=== PATIENT | male | born 1965 | race Caucasian/White ===

== ENCOUNTER 2016-08-03 10:08 | Inpatient (IN) | payer OTHER ==
[~2016-08-03] VITALS: Ht 165.1 cm; Wt 63.3 kg
[2016-08-03 11:12] LABS: HEMATOCRIT 29.6 % (38.0-50.0); MCH 26.6 PG (29.0-34.0); MCHC 32.8 G/DL (30.0-36.0); MCV 81.3 FL (86-99); MEAN PLAT.VOLUME 9.4 uM^3 (9.0-12.4); PLATELET COUNT 405 K/uL (156-360); RBC DIS.WIDTH-CV 14.7 % (11.8-14.6); RBC DIS.WIDTH-SD 41.9 % (39-53); RED BLOOD COUNT 3.64 M/uL (4.00-5.50); WHITE BLOOD COUNT 13.3 K/uL (4.1-10.2)
[2016-08-03 11:22] LABS: CHLORIDE 112 mEq/L (99-109); POTASSIUM 3.9 mEq/L (3.7-5.4); SODIUM 139 mEq/L (136-147)
[2016-08-03 11:24] LABS: GLUCOSE 86 mg/dL (70-99)
[2016-08-03 11:25] LABS: ANION GAP 11 MEQ/L (2-14)
[2016-08-03 11:26] LABS: TOTAL BILIRUBIN 0.3 mg/dL (0.0-1.0)
[2016-08-03 11:27] LABS: ALKALINE PHOSPHATASE 67 IU/L (3-129)
[2016-08-03 11:28] LABS: GFR ESTIMATE (CALCULATED) 32 mL/min/
[2016-08-03 11:29] LABS: UREA NITROGEN (BUN) 39 mg/dL (9-23)
[2016-08-03 11:29] LABS: ADD MIUA? YES; BILIRUBIN NEGATIVE; BLOOD LARGE; GLUCOSE (STRIP) NEGATIVE; KETONES NEGATIVE; LEUKOCYTES LARGE; NITRITE POSITIVE; PROTEIN (STRIP) 100; SPECIFIC GRAVITY 1.007 (1.000-1.030)
[2016-08-03 11:30] LABS: COLOR LT.RED ((YELLOW))
[2016-08-03 11:36] LABS: TROP-I INTERPRETATION NEGATIVE; TROPONIN-I 0.01 ng/mL (0.0-0.30)
[2016-08-03 12:31] LABS: RED BLOOD CELLS TNTC /HPF (0-5); WHITE BLOOD CELLS TNTC /HPF (0-5)
[2016-08-03 12:32] LABS: UCUL ADDED? YES
[2016-08-03 13:06] LABS: CREATINE KINASE 37 IU/L (1-294)
[2016-08-03 19:30] VITALS: BP 130/80
[2016-08-03 19:58] LABS: ABSOLUTE RETICULOCYTE CT. 0.02 M/uL (0.02-0.08); IMM.RETIC FRACTION 1.3 % (3-19); RETIC HGB EQUIVALENT 30.4 (28-36); RETICULOCYTE COUNT 0.7 % (0.5-1.8)
[2016-08-03 20:16] VITALS: BP 149/81
[2016-08-03 20:23] LABS: IRON 42 MCG/DL (35-150)
[2016-08-03 20:25] LABS: TROP-I INTERPRETATION NEGATIVE; TROPONIN-I 0.01 ng/mL (0.0-0.30)
[2016-08-03 21:16] VITALS: BP 133/59
[2016-08-03 22:15] VITALS: BP 148/86
[2016-08-03 22:22] LABS: FERRITIN 284 NG/ML (22-322)
[2016-08-03 22:23] VITALS: BP 130/76
[2016-08-04 03:36] LABS: UR CREATININE CONCENTRATION 32.3 MG/DL
[2016-08-04 06:22] LABS: CARBON DIOXIDE (BICARBONATE) 16.3 MEQ/L (20-31)
[2016-08-04 07:36] LABS: ANION GAP 8 MEQ/L (2-14); CHLORIDE 117 MEQ/L (99-109); GFR ESTIMATE (CALCULATED) 52 mL/min/; GLUCOSE 81 mg/dL (70-99); POTASSIUM 3.7 MEQ/L (3.7-5.4); SAMPLE HEMOLYSIS CHECK 0; SAMPLE ICTERIC CHECK 0; SAMPLE LIPEMIA CHECK 0; SODIUM 138 MEQ/L (136-147); UREA NITROGEN (BUN) 24 mg/dL (9-23)
[2016-08-04 08:00] VITALS: BP 163/98
[2016-08-04 08:12] LABS: HEMATOCRIT 24.1 % (38.0-50.0); MCH 26.5 PG (29.0-34.0); MCHC 32.4 G/DL (30.0-36.0); RBC DIS.WIDTH-CV 15.4 % (11.8-14.6); RED BLOOD COUNT 2.94 M/uL (4.00-5.50)
[2016-08-04 08:31] LABS: WHITE BLOOD COUNT 9.3 K/uL (4.1-10.2)
[2016-08-04 11:41] VITALS: BP 143/82
[2016-08-04 15:30] VITALS: BP 143/82
[2016-08-04 19:15] VITALS: BP 139/87
[2016-08-04 23:29] VITALS: BP 151/86
[2016-08-05] VITALS (7 sets, daily range): BP systolic 120–183; BP diastolic 77–91
[2016-08-05 06:35] LABS: HEMATOCRIT 24.3 % (38.0-50.0); MCH 26.7 PG (29.0-34.0); MCHC 32.5 G/DL (30.0-36.0); MCV 82.1 FL (86-99); RBC DIS.WIDTH-CV 15.2 % (11.8-14.6); RBC DIS.WIDTH-SD 45.7 % (39-53); RED BLOOD COUNT 2.96 M/uL (4.00-5.50); WHITE BLOOD COUNT 6.6 K/uL (4.1-10.2)
[2016-08-05 06:40] LABS: INTER. NORMALIZED RATIO 1.1; PROTHROMBIN TIME 11.6 (9.2-11.2)
[2016-08-05 07:13] LABS: ANION GAP 7 MEQ/L (2-14); CHLORIDE 112 MEQ/L (99-109); GFR ESTIMATE (CALCULATED) 57 mL/min/; GLUCOSE 84 mg/dL (70-99); POTASSIUM 3.7 MEQ/L (3.7-5.4); SAMPLE HEMOLYSIS CHECK 0; SAMPLE ICTERIC CHECK 0; SAMPLE LIPEMIA CHECK 0; SODIUM 139 MEQ/L (136-147); UREA NITROGEN (BUN) 18 mg/dL (9-23)
[2016-08-05 07:30] LABS: ALKALINE PHOSPHATASE 52 IU/L (3-129); TOTAL BILIRUBIN 0.2 MG/DL (0.0-1.0)
[2016-08-05 08:04] LABS: MEAN PLAT.VOLUME 9.6 uM^3 (9.0-12.4)
[2016-08-05 08:07] LABS: PLATELET COUNT 245 K/uL (156-360)
[2016-08-05 10:51] LABS: ABSOLUTE RETICULOCYTE CT. 0.03 M/uL (0.02-0.08); IMM.RETIC FRACTION 4.6 % (3-19)
[2016-08-05 12:04] LABS: RETICULOCYTE COUNT 1.2 % (0.5-1.8)
[2016-08-06] VITALS (11 sets, daily range): BP systolic 134–179; BP diastolic 79–100
[2016-08-06 06:34] LABS: MCH 26.9 PG (29.0-34.0); MCHC 33.4 G/DL (30.0-36.0); MCV 80.4 FL (86-99); MEAN PLAT.VOLUME 9.7 uM^3 (9.0-12.4); PLATELET COUNT 260 K/uL (156-360); RBC DIS.WIDTH-CV 14.7 % (11.8-14.6); RBC DIS.WIDTH-SD 43.6 % (39-53)
[2016-08-06 06:45] LABS: CHLORIDE 104 MEQ/L (99-109); GFR ESTIMATE (CALCULATED) > 59 mL/min/; GLUCOSE 98 mg/dL (70-99); RED BLOOD COUNT 3.98 M/uL (4.00-5.50); SODIUM 140 MEQ/L (136-147); UREA NITROGEN (BUN) 19 mg/dL (9-23); WHITE BLOOD COUNT 9.3 K/uL (4.1-10.2)
[2016-08-06 06:46] LABS: ALKALINE PHOSPHATASE 55 IU/L (3-129); ANION GAP 10 MEQ/L (2-14); SAMPLE HEMOLYSIS CHECK 0; SAMPLE ICTERIC CHECK 0; SAMPLE LIPEMIA CHECK 0
[2016-08-06 06:50] LABS: TOTAL BILIRUBIN 0.5 MG/DL (0.0-1.0)
[2016-08-06 06:57] LABS: ANION GAP 12 MEQ/L (2-14); CHLORIDE 105 MEQ/L (99-109); GFR ESTIMATE (CALCULATED) > 59 mL/min/; GLUCOSE 98 mg/dL (70-99); SAMPLE HEMOLYSIS CHECK 0; SAMPLE ICTERIC CHECK 0; SAMPLE LIPEMIA CHECK 0; SODIUM 142 MEQ/L (136-147); UREA NITROGEN (BUN) 18 mg/dL (9-23)
[2016-08-06 13:42] LABS: IFE GEL NO. 13-8
[2016-08-07 00:36] VITALS: BP 161/80
[2016-08-07 06:31] LABS: HEMATOCRIT 32.6 % (38.0-50.0); MCH 26.6 PG (29.0-34.0); MCHC 32.8 G/DL (30.0-36.0); MCV 81.1 FL (86-99); MEAN PLAT.VOLUME 9.3 uM^3 (9.0-12.4); PLATELET COUNT 267 K/uL (156-360); RBC DIS.WIDTH-CV 14.9 % (11.8-14.6); RBC DIS.WIDTH-SD 43.8 % (39-53); RED BLOOD COUNT 4.02 M/uL (4.00-5.50); WHITE BLOOD COUNT 9.9 K/uL (4.1-10.2)
[2016-08-07 07:01] LABS: ALKALINE PHOSPHATASE 55 IU/L (3-129); ANION GAP 10 MEQ/L (2-14); CHLORIDE 104 MEQ/L (99-109); GFR ESTIMATE (CALCULATED) > 59 mL/min/; GLUCOSE 83 mg/dL (70-99); POTASSIUM 3.2 MEQ/L (3.7-5.4); SAMPLE HEMOLYSIS CHECK 0; SAMPLE ICTERIC CHECK 0; SAMPLE LIPEMIA CHECK 0; SODIUM 141 MEQ/L (136-147); TOTAL BILIRUBIN 0.4 MG/DL (0.0-1.0); UREA NITROGEN (BUN) 17 mg/dL (9-23)
[2016-08-07 07:47] VITALS: BP 146/88
[2016-08-07 11:50] VITALS: BP 170/88
[2016-08-07 16:00] VITALS: BP 168/88
[2016-08-07] MEDS ORDERED: AMLODIPINE BESYL5 MG PO (17:54)
[2016-08-07] MEDS ORDERED: ENDOCET 5-3251 EACH PO (17:54)
[2016-08-07] MEDS ORDERED: ASPIR-LOW81 MG PO (17:54)
[2016-08-07] MEDS ORDERED: NABI650T PO (17:54)
[2016-08-07] MEDS ORDERED: K-DUR10 MEQ PO (17:54)
[2016-08-07] MEDS ORDERED: CARDIZEM CD120 MG PO (17:54)
[2016-08-07] MEDS ORDERED: Vitamin B-12 PO (17:54)
[2016-08-07] MEDS ORDERED: CIPRO500 MG PO (17:54)
[2016-08-07] MEDS ORDERED: PHENAZOPYRIDIN100 MG PO (17:54)
== END 2016-08-07 18:49 | disposition home or self-care (01) | DRG 309 ==
LOC: EME 10:08 → EDOF 13:24 → 4EAST 13:24 → EDOF 15:39 → 4EAST 19:12
PROVIDERS: Emergency Medicine; Internal Medicine; Internal Medicine Nephrology
PROC: 30233N1 Transfusion of Nonautologous Red Blood Cells into Peripheral Vein, Percutaneous Approach (ICD-10-PCS; principal; 2016-08-06)
DX: I48.0 Paroxysmal atrial fibrillation (principal); N39.0 Urinary tract infection, site not specified; N17.9 Acute kidney failure, unspecified; N13.30 Unspecified hydronephrosis; G83.9 Paralytic syndrome, unspecified; F17.210 Nicotine dependence, cigarettes, uncomplicated; B96.20 Unspecified Escherichia coli [E. coli] as the cause of diseases classified elsewhere; R00.0 Tachycardia, unspecified; G89.29 Other chronic pain; E53.8 Deficiency of other specified B group vitamins; M54.9 Dorsalgia, unspecified; N18.9 Chronic kidney disease, unspecified; J44.9 Chronic obstructive pulmonary disease, unspecified; R33.9 Retention of urine, unspecified; N31.9 Neuromuscular dysfunction of bladder, unspecified; E87.8 Other disorders of electrolyte and fluid balance, not elsewhere classified; R39.12 Poor urinary stream; K59.00 Constipation, unspecified; R10.9 Unspecified abdominal pain; D50.9 Iron deficiency anemia, unspecified; I12.9 Hypertensive chronic kidney disease with stage 1 through stage 4 chronic kidney disease, or unspecified chronic kidney disease; R06.02 Shortness of breath; R31.9 Hematuria, unspecified; Z79.891 Long term (current) use of opiate analgesic; Z88.0 Allergy status to penicillin
CPT/HCPCS: 74022; 76770; 80048; 80053; 80069; 81003; 82550 91; 82570; 82607; 82728; 82746; 82803; 83540; 84300; 84443; 84466; 84484; 85027; 85045; 85610; 86334; 86850; 86900; 86901; 86920; 87040; 87077; 87086; 87186; 93005; 93306; 99202; 99281; 99285; J0696; J1170; J1644; J1940; J2405; J7030; J7050; J7120; P9016